=== PATIENT | female | born 2000 | race Two or more races ===

== ENCOUNTER 2022-05-06 21:12 | Emergency (ER) | payer OTHER ==
[~2022-05-06] VITALS: Ht 180.3 cm; Wt 88.5 kg
[2022-05-07] MEDS ORDERED: BUDESONIDE0.5 MG/2 M IH (01:26)
[2022-05-07] MEDS ORDERED: ZYNCOF 20-400120 ML PO (01:26)
== END 2022-05-07 03:33 | disposition home or self-care (01) ==
LOC: EMR PED 21:12
DX: R42 Dizziness and giddiness (principal); R06.02 Shortness of breath